=== PATIENT | male | born 1990 | race Caucasian/White ===

== ENCOUNTER 2016-12-14 22:16 | Emergency (ER) | payer MEDICAID ==
[~2016-12-14 22:16] MED LIST: ARIPIPRAZOL1 MG/1 ML PO; CALCIUM500 M1; CEPHALEXIN500 M1 PO; CITALOPRAM HBR10 MG; DEPAKOTE125 MG PO; DEPAKOTE500 M2 PO; ESCITALOPRAM10 MG PO; MELATONIN1 M3 PO; MELATONIN1 MG; NORCO 325 MG-51 TAB PO
[2016-12-14] MEDS ORDERED: DEPAKOTE DR500 MG PO (22:27)
[2016-12-14] MEDS ORDERED: NEURONTIN300 M1 PO (22:29)
[2016-12-15 02:15] VITALS: BP 122/62
== END 2016-12-15 02:15 | disposition home or self-care (01) ==
LOC: ED 22:16
DX: E86.0 Dehydration (principal); M54.5 Low back pain
CPT/HCPCS: J1885; J7030

== ENCOUNTER → 2017-01-16 | Outpatient (CLI) | payer MEDICAID ==
[~2017-01-16] MED LIST changes: +DEPAKOTE DR500 MG PO; +NEURONTIN300 M1 PO
== END ==
LOC: LAB 10:34
DX: R10.84 Generalized abdominal pain (principal); R11.0 Nausea

== ENCOUNTER 2017-03-29 20:24 | Emergency (ER) | payer MEDICAID ==
[~2017-03-29] VITALS: Ht 170.2 cm; Wt 81.8 kg
[2017-03-29 21:44] VITALS: BP 132/72
== END 2017-03-29 21:33 | disposition home or self-care (01) ==
LOC: ED 20:24
DX: M25.531 Pain in right wrist (principal); W10.9XXA Fall (on) (from) unspecified stairs and steps, initial encounter; Y92.009 Unspecified place in unspecified non-institutional (private) residence as the place of occurrence of the external cause

== ENCOUNTER 2018-12-30 20:13 | Emergency (ER) | payer SELFPAY ==
[~2018-12-30] VITALS: Ht 167.6 cm; Wt 63.6 kg
[2018-12-30] MEDS ORDERED: DIVALPROEX SOD250 M1 PO ×2 (21:17)
[2018-12-30] MEDS ORDERED: CEPHALEXIN500 M1 PO (22:24)
[2018-12-30 22:42] VITALS: BP 107/67
== END 2018-12-30 22:42 | disposition home or self-care (01) ==
LOC: ED 20:13
DX: L03.011 Cellulitis of right finger (principal); F31.9 Bipolar disorder, unspecified; F20.9 Schizophrenia, unspecified; F17.210 Nicotine dependence, cigarettes, uncomplicated; Z91.19 Patient's noncompliance with other medical treatment and regimen
CPT/HCPCS: J1885

== ENCOUNTER 2019-01-15 19:32 | Emergency (ER) | payer SELFPAY ==
[~2019-01-15] VITALS: Ht 167.6 cm; Wt 59.5 kg
[~2019-01-15 19:32] MED LIST changes: +DIVALPROEX SOD250 M1 PO
[2019-01-15] MEDS ORDERED: MULTI-VITAMINS1 TA1 PO (19:47)
[2019-01-15] MEDS ORDERED: ELIMITE60 G1 TP ×3 (20:19→20:26)
[2019-01-15 20:36] VITALS: BP 106/71
== END 2019-01-15 20:36 | disposition home or self-care (01) ==
LOC: ED 19:32
DX: R21 Rash and other nonspecific skin eruption (principal); F31.9 Bipolar disorder, unspecified; F20.9 Schizophrenia, unspecified; M41.9 Scoliosis, unspecified; Q85.00 Neurofibromatosis, unspecified; F90.9 Attention-deficit hyperactivity disorder, unspecified type; F17.210 Nicotine dependence, cigarettes, uncomplicated; Z98.890 Other specified postprocedural states; Z98.52 Vasectomy status

== ENCOUNTER 2019-01-26 17:46 | Emergency (ER) | payer SELFPAY ==
[~2019-01-26] VITALS: Ht 167.6 cm; Wt 64.2 kg
[~2019-01-26 17:46] MED LIST changes: +ELIMITE60 G1 TP; +MULTI-VITAMINS1 TA1 PO
[2019-01-26] MEDS ORDERED: METAMUCIL POWD575 G1 PO (17:53)
[2019-01-26] MEDS ORDERED: KETOROLAC10 MG PO (18:38)
[2019-01-26] MEDS ORDERED: NITRO-BID22 TD (18:38)
[2019-01-26 19:14] VITALS: BP 105/61
== END 2019-01-26 19:15 | disposition home or self-care (01) ==
LOC: ED 17:46
DX: K60.2 Anal fissure, unspecified (principal); F20.9 Schizophrenia, unspecified; F31.9 Bipolar disorder, unspecified; Q85.00 Neurofibromatosis, unspecified
CPT/HCPCS: J1885

== ENCOUNTER 2021-01-22 16:03 | Emergency (ER) | payer MEDICAID ==
[~2021-01-22 16:03] MED LIST changes: +KETOROLAC10 MG PO; +METAMUCIL POWD575 G1 PO; +NITRO-BID22 TD
[2021-01-22 16:17] VITALS: BP 107/72
== END 2021-01-22 17:05 | disposition home or self-care (01) ==
LOC: ED 16:03
DX: M79.645 Pain in left finger(s) (principal); F17.210 Nicotine dependence, cigarettes, uncomplicated; W19.XXXA Unspecified fall, initial encounter
CPT/HCPCS: J1885

== ENCOUNTER 2021-02-09 22:07 | Emergency (ER) | payer MEDICAID ==
[2021-02-10] MEDS ORDERED: CEPHALEXIN500 M1 PO (00:11)
[2021-02-10 00:19] VITALS: BP 104/76
== END 2021-02-10 00:19 | disposition home or self-care (01) ==
LOC: ED 22:07
DX: S90.861A Insect bite (nonvenomous), right foot, initial encounter (principal); F17.210 Nicotine dependence, cigarettes, uncomplicated; W57.XXXA Bitten or stung by nonvenomous insect and other nonvenomous arthropods, initial encounter

== ENCOUNTER 2021-02-18 00:53 | Emergency (ER) | payer MEDICAID ==
[2021-02-18 01:10] LABS: BASO # 0.05 (0.02-0.10); EOS # 0.08 (0.04-0.40); EOS % 1.2 % (0.0-4.0); HEMATOCRIT 44.8 % (42.0-52.0); HEMOGLOBIN 15.2 g/dL (13.5-18.0); LYMPH# 2.09 (1.50-4.00); MEAN CELL VOLUME 91 fl (78-100); MEAN CORPUSCULAR HEMOGLOBIN 31 pg (27-31); MEAN CORPUSCULAR HGB CONC 34 g/dL (33-37); MONO # 0.66 (0.20-0.80); NEU # 3.94 (1.40-6.50); PLATELET COUNT 230 K/mm3 (130-400); RED BLOOD COUNT 4.94 M/mm3 (4.20-5.60); RED CELL DISTRIBUTION WIDTH 12.5 % (11.5-14.5); WHITE BLOOD COUNT 6.8 K/mm3 (4.8-10.8)
[2021-02-18 01:18] LABS: ALBUMIN 4.4 g/dL (3.5-5.0); POTASSIUM 3.9 mmol/L (3.5-5.1); SODIUM 142 mmol/L (136-145)
[2021-02-18 01:20] LABS: CALCIUM 9.2 mg/dL (8.3-10.5)
[2021-02-18 01:21] LABS: GLUCOSE 89 mg/dL (75-110); TOTAL PROTEIN 7.1 g/dL (6.4-8.3)
[2021-02-18 01:22] LABS: CARBON DIOXIDE 23 mmol/L (22-29)
[2021-02-18 01:23] LABS: TOTAL BILIRUBIN 0.7 mg/dL (0.2-1.2)
[2021-02-18 01:25] LABS: ALCOHOL IN-HOUSE < 10 mg/dL (<10)
[2021-02-18 01:26] LABS: AST-SGOT 12 U/L (5-34)
[2021-02-18 01:28] LABS: ALT/SGPT 11 U/L (0-55)
[2021-02-18 01:32] LABS: ACETAMINOPHEN < 1 ug/mL
[2021-02-18 03:14] VITALS: BP 98/55
== END 2021-02-18 03:18 | disposition home or self-care (01) ==
LOC: ED 00:53
PROVIDERS: Physician Assistant
DX: R45.851 Suicidal ideations (principal); F17.210 Nicotine dependence, cigarettes, uncomplicated; Z20.822 Contact with and (suspected) exposure to COVID-19